=== PATIENT | male | born 1995 | race Two or more races ===

== ENCOUNTER 2021-06-06 13:34 | Inpatient (IN) | payer MEDICAID, OTHER ==
[~2021-06-06] VITALS: Ht 165.1 cm; Wt 75.7 kg
[2021-06-06 14:38] LABS: COVID AG,FIA SOURCE NASOPHARYNGEAL
[2021-06-06 15:00] LABS: BASOPHILS % (AUTO) 0.5 % (0.0-2.0); EOSINOPHILS % (AUTO) 1.6 % (1.0-6.0); HEMATOCRIT 42.9 % (41-53); HEMOGLOBIN 14.5 g/dL (13.5-17.5); LYMPHOCYTES # (AUTO) 1.7 K/uL (1.0-4.8); LYMPHOCYTES % (AUTO) 15.7 % (22.0-44.0); MEAN CORPUSCULAR HEMOGLOBIN 31.9 pg (26.0-34.0); MEAN CORPUSCULAR HGB CONC 33.8 G/dL (31.0-37.0); MEAN CORPUSCULAR VOLUME 94 fL (80-100); MONOCYTES # (AUTO) 0.6 K/uL (0.1-1.0); MONOCYTES % (AUTO) 5.4 % (2.0-9.0); NEUTROPHILS # (AUTO) 8.5 K/uL (1.8-7.7); NEUTROPHILS % (AUTO) 76.8 % (40.0-70.0); PLATELET COUNT (AUTO) 235 K/uL (150-450); RED BLOOD CELL COUNT(AUTO) 4.54 MIL/uL (4.50-5.90); RED CELL DISTRIBUTION WIDTH 13.6 % (11.5-14.5)
[2021-06-06 15:12] LABS: ANION GAP 10 mmol/L (8-16); CALCIUM, TOTAL 8.7 mg/dL (8.8-10.5); CARBON DIOXIDE 25 mmol/L (22-29); CHLORIDE 106 mmol/L (98-107); CREATININE 0.62 mg/dL (0.60-1.30); GLOMERULAR FILTR. RATE CALC > 60 mL/min (>60); GLUCOSE,RANDOM 95 mg/dL (70-110); POTASSIUM 3.9 mmol/L (3.5-5.1); SODIUM SERUM 141 mmol/L (136-145); UREA NITROGEN, BLOOD 7 mg/dL (7-18)
[2021-06-06 15:21] LABS: AMPHET/METH SCREEN,URINE NEGATIVE (NEGATIVE); BARBITURATE SCREEN, URINE NEGATIVE (NEGATIVE); BENZODIAZEPINES SCREEN,URINE NEGATIVE (NEGATIVE); CANNABINOID SCREEN,URINE POSITIVE (NEGATIVE); COCAINE SCREEN,URINE NEGATIVE (NEGATIVE); METHADONE SCREEN, URINE NEGATIVE (NEGATIVE); OPIATE SCREEN,URINE NEGATIVE (NEGATIVE)
[2021-06-06 15:22] LABS: PHENCYCLIDINE SCREEN,URINE NEGATIVE (NEGATIVE)
[2021-06-06 15:25] LABS: ALANINE AMINOTRANSFERASE 20 U/L (12-78); ALBUMIN 3.4 g/dL (3.4-5.0); ALKALINE PHOSPHATASE 62 U/L (46-116); ASPARTATE AMINOTRANSFERASE 15 U/L (15-37); BILIRUBIN,TOTAL 0.4 mg/dL (0.1-1.0); TOTAL PROTEIN, SERUM 6.4 g/dL (6.4-8.2)
[2021-06-06] MEDS ORDERED: BENZTROPINE MESYLATE 2 MG TABLET PO ONE (18:30)
[2021-06-06] MEDS ORDERED: HALOPERIDOL 5 MG TABLET PO ONE (18:30)
[2021-06-06] MEDS ORDERED: LORazepam 1 MG TABLET PO ONE (18:30)
[2021-06-06] MEDS ORDERED: ZOLPIDEM TARTRATE 10 MG TABLET PO PRN (18:45)
[2021-06-06 20:20] VITALS: BP 104/80
[2021-06-07 03:31] LABS: CHOLESTEROL 108 mg/dL (131-200); HDL CHOLESTEROL 36 mg/dL (40-60); LDL CHOL (CALC.) 60 mg/dL (0-130); TRIGLYCERIDES 58 mg/dL (15-150)
[2021-06-07] MEDS ORDERED: CloNIDine HCL 0.1 MG TABLET PO PRN (08:30)
[2021-06-07] MEDS ORDERED: IBUPROFEN 400 MG TABLET PO PRN (08:30)
[2021-06-07] MEDS ORDERED: GuaiFENesin/D-METHORPHAN [SUGAR-FREE] 200-20MG/10 ML SYRUP UDCUP PO PRN (08:30)
[2021-06-07] MEDS ORDERED: LOPERAMIDE HCL 2 MG CAPSULE PO PRN (08:30)
[2021-06-07] MEDS ORDERED: DOCUSATE SODIUM 100 MG CAPSULE PO PRN (08:30)
[2021-06-07] MEDS ORDERED: PETROLATUM,WHITE 28 GM JELLY TP PRN (08:30)
[2021-06-07] MEDS ORDERED: ONDANSETRON HCL 4 MG TABLET PO PRN (08:30)
[2021-06-07] MEDS ORDERED: NICOTINE 14 MG/24 HOUR PATCH TD PRN (08:30)
[2021-06-07] MEDS ORDERED: MAGNESIUM HYDROXIDE SUSPENSION 30 ML UDCUP PO PRN (08:30)
[2021-06-07] MEDS ORDERED: ACETAMINOPHEN 325 MG TABLET PO PRN (08:30)
[2021-06-07] MEDS ORDERED: ALBUTEROL SULFATE HFA 90 MCG/PUFF 8 GM INHALER IH PRN (08:30)
[2021-06-07] MEDS ORDERED: MAG HYDROX/AL HYDROX/SIMETH ES 30 ML SUSPENSION UDCUP PO PRN (08:30)
[2021-06-07 08:38] VITALS: BP 108/61
[2021-06-07] MEDS: RisperiDONE 2 MG TABLET PO SCH ×2 (10:51→20:20)
[2021-06-07 16:20] VITALS: BP 106/72
[2021-06-08 08:27] VITALS: BP 114/66
[2021-06-08] MEDS: RisperiDONE 2 MG TABLET PO SCH ×2 (08:31→08:32)
[2021-06-08] MEDS: LORazepam 2 MG TABLET PO PRN (09:04)
[2021-06-08] MEDS: HALOPERIDOL 5 MG TABLET PO PRN (09:04)
[2021-06-08] MEDS ORDERED: HALOPERIDOL LACTATE 5 MG/ML VIAL IM ONE (16:15)
[2021-06-08] MEDS ORDERED: DiphenhydrAMINE HCL 50 MG/ML VIAL IM ONE (16:15)
[2021-06-08] MEDS ORDERED: LORazepam 2 MG/ML VIAL IM ONE (16:15)
[2021-06-08 16:30] VITALS: BP 104/64
[2021-06-09] MEDS: RisperiDONE 2 MG TABLET PO SCH ×2 (07:43→20:17)
[2021-06-09] MEDS: LORazepam 2 MG TABLET PO PRN (07:43)
[2021-06-09] MEDS: HALOPERIDOL 5 MG TABLET PO PRN (07:43)
[2021-06-09 08:11] VITALS: BP 110/71
[2021-06-09] MEDS ORDERED: HALOPERIDOL LACTATE 5 MG/ML VIAL IM ONE (15:45)
[2021-06-09] MEDS ORDERED: DiphenhydrAMINE HCL 50 MG/ML VIAL IM ONE (15:45)
[2021-06-09] MEDS ORDERED: LORazepam 2 MG/ML VIAL IM ONE (15:45)
[2021-06-10 11:11] VITALS: BP 115/65
[2021-06-10] MEDS: DIVALPROEX SODIUM 500 MG DR TABLET PO SCH ×2 (12:03→16:01)
[2021-06-10] MEDS: RisperiDONE 2 MG TABLET PO SCH ×2 (12:03→20:02)
[2021-06-10] MEDS: LORazepam 2 MG TABLET PO PRN (16:00)
[2021-06-10] MEDS: HALOPERIDOL 5 MG TABLET PO PRN ×2 (16:00→20:02)
[2021-06-10 16:44] VITALS: BP 110/64
[2021-06-10] MEDS ORDERED: DIVALPROEX SODIUM 500 MG DR TABLET PO SCH (17:00)
[2021-06-11] MEDS: RisperiDONE 2 MG TABLET PO SCH (08:12)
[2021-06-11] MEDS: DIVALPROEX SODIUM 500 MG DR TABLET PO SCH (08:12)
[2021-06-11 08:33] VITALS: BP 117/70
[2021-06-11] MEDS ORDERED: RISP2TAB45 PO (12:33)
[2021-06-11] MEDS ORDERED: DIVA-112 PO (12:33)
== END 2021-06-11 14:10 | disposition left against medical advice (07) | DRG 750 ==
LOC: EMS 13:37 → 3EC 18:27
PROVIDERS: ADMIT Psychiatry & Neurology Child & Adolescent Psychiatry; ATTEND Psychiatry & Neurology Child & Adolescent Psychiatry
DX: F20.0 Paranoid schizophrenia (principal); Z59.0 Homelessness; D72.829 Elevated white blood cell count, unspecified; F17.200 Nicotine dependence, unspecified, uncomplicated; Z20.822 Contact with and (suspected) exposure to COVID-19; F19.10 Other psychoactive substance abuse, uncomplicated; F41.9 Anxiety disorder, unspecified; F10.10 Alcohol abuse, uncomplicated; Y90.9 Presence of alcohol in blood, level not specified; F15.90 Other stimulant use, unspecified, uncomplicated; F12.90 Cannabis use, unspecified, uncomplicated
CPT/HCPCS: 80053; 80061; 85025; 99285; G0480; J1200; J1630; J2060

== ENCOUNTER 2021-07-11 21:01 | Inpatient (IN) | payer MEDICAID, OTHER ==
[~2021-07-11] VITALS: Ht 167.6 cm; Wt 75.3 kg
[~2021-07-11 21:01] MED LIST: DIVA-112 PO; RISP2TAB45 PO
[2021-07-11 21:57] LABS: BASOPHILS % (AUTO) 1.2 % (0.0-2.0); HEMATOCRIT 46.1 % (41-53); HEMOGLOBIN 15.5 g/dL (13.5-17.5); LYMPHOCYTES # (AUTO) 1.8 K/uL (1.0-4.8); LYMPHOCYTES % (AUTO) 17.2 % (22.0-44.0); MEAN CORPUSCULAR HEMOGLOBIN 32.4 pg (26.0-34.0); MEAN CORPUSCULAR HGB CONC 33.6 G/dL (31.0-37.0); MEAN CORPUSCULAR VOLUME 96 fL (80-100); MONOCYTES # (AUTO) 0.8 K/uL (0.1-1.0); MONOCYTES % (AUTO) 7.8 % (2.0-9.0); NEUTROPHILS # (AUTO) 7.3 K/uL (1.8-7.7); NEUTROPHILS % (AUTO) 70.8 % (40.0-70.0); PLATELET COUNT (AUTO) 238 K/uL (150-450); RED BLOOD CELL COUNT(AUTO) 4.78 MIL/uL (4.50-5.90); RED CELL DISTRIBUTION WIDTH 14.2 % (11.5-14.5)
[2021-07-11 21:58] LABS: COVID AG,FIA SOURCE NASOPHARYNGEAL
[2021-07-11 22:04] LABS: ANION GAP 10 mmol/L (8-16); CALCIUM, TOTAL 8.7 mg/dL (8.8-10.5); CARBON DIOXIDE 25 mmol/L (22-29); CHLORIDE 105 mmol/L (98-107); CREATININE 0.84 mg/dL (0.60-1.30); GLOMERULAR FILTR. RATE CALC > 60 mL/min (>60); GLUCOSE,RANDOM 127 mg/dL (70-110); POTASSIUM 3.2 mmol/L (3.5-5.1); SODIUM SERUM 140 mmol/L (136-145); UREA NITROGEN, BLOOD 6 mg/dL (7-18)
[2021-07-11 22:07] LABS: AMPHET/METH SCREEN,URINE NEGATIVE (NEGATIVE); BARBITURATE SCREEN, URINE NEGATIVE (NEGATIVE); BENZODIAZEPINES SCREEN,URINE NEGATIVE (NEGATIVE); CANNABINOID SCREEN,URINE POSITIVE (NEGATIVE); COCAINE SCREEN,URINE NEGATIVE (NEGATIVE); METHADONE SCREEN, URINE NEGATIVE (NEGATIVE); OPIATE SCREEN,URINE NEGATIVE (NEGATIVE)
[2021-07-11 22:10] LABS: PHENCYCLIDINE SCREEN,URINE NEGATIVE (NEGATIVE)
[2021-07-11 22:10] LABS: ALANINE AMINOTRANSFERASE 20 U/L (12-78); ALKALINE PHOSPHATASE 73 U/L (46-116); ASPARTATE AMINOTRANSFERASE 14 U/L (15-37); BILIRUBIN,TOTAL 0.6 mg/dL (0.1-1.0); TOTAL PROTEIN, SERUM 7.3 g/dL (6.4-8.2)
[2021-07-11] MEDS ORDERED: POTASSIUM CHLORIDE 20 MEQ ER TABLET PO ONE (22:30)
[2021-07-11 22:42] LABS: VALPROIC ACID < 3 mcg/mL (50-100)
[2021-07-12] MEDS ORDERED: ZOLPIDEM TARTRATE 10 MG TABLET PO PRN (00:15)
[2021-07-12 02:45] LABS: APPEARANCE,URINE CLEAR (CLEAR); BILIRUBIN,URINE NEGATIVE (NEGATIVE); GLUCOSE, URINE (UA) NEGATIVE (NEGATIVE); KETONES,URINE NEGATIVE (NEGATIVE); LEUKOCYTE ESTERASE ,URINE NEGATIVE (NEGATIVE); NITRATE,URINE NEGATIVE (NEGATIVE); OCCULT BLOOD,URINE NEGATIVE (NEGATIVE); PROTEIN,URINE NEGATIVE (NEGATIVE); UROBILINOGEN,URINE 0.2 mg/dL (<=1.0)
[2021-07-12 18:34] VITALS: BP 117/86
[2021-07-12] MEDS: RisperiDONE 2 MG TABLET PO SCH (20:36)
[2021-07-12] MEDS: LORazepam 2 MG TABLET PO PRN (20:36)
[2021-07-13] MEDS ORDERED: LOPERAMIDE HCL 2 MG CAPSULE PO PRN (06:45)
[2021-07-13] MEDS ORDERED: ALBUTEROL SULFATE HFA 90 MCG/PUFF 8 GM INHALER IH PRN (06:45)
[2021-07-13] MEDS ORDERED: PETROLATUM,WHITE 28 GM JELLY TP PRN (06:45)
[2021-07-13] MEDS ORDERED: MAG HYDROX/AL HYDROX/SIMETH ES 30 ML SUSPENSION UDCUP PO PRN (06:45)
[2021-07-13] MEDS ORDERED: POTASSIUM CHLORIDE 20 MEQ ER TABLET PO ONE (06:45)
[2021-07-13] MEDS ORDERED: BENZOCAINE/MENTHOL LOZENGE PO PRN (06:45)
[2021-07-13] MEDS ORDERED: ONDANSETRON HCL 4 MG TABLET PO PRN (06:45)
[2021-07-13] MEDS ORDERED: CloNIDine HCL 0.1 MG TABLET PO PRN (06:45)
[2021-07-13] MEDS ORDERED: MAGNESIUM HYDROXIDE SUSPENSION 30 ML UDCUP PO PRN (06:45)
[2021-07-13] MEDS ORDERED: DOCUSATE SODIUM 100 MG CAPSULE PO PRN (06:45)
[2021-07-13] MEDS ORDERED: BACITRACIN 28 GM OINTMENT TP PRN (06:45)
[2021-07-13] MEDS ORDERED: OMEPRAZOLE 20 MG CAPSULE PO PRN (06:45)
[2021-07-13] MEDS ORDERED: ACETAMINOPHEN 325 MG TABLET PO PRN (06:45)
[2021-07-13] MEDS ORDERED: IBUPROFEN 600 MG TABLET PO PRN (06:45)
[2021-07-13 08:18] VITALS: BP 113/70
[2021-07-13] MEDS: DIVALPROEX SODIUM 500 MG ER TABLET PO SCH ×2 (08:22→16:53)
[2021-07-13] MEDS: RisperiDONE 2 MG TABLET PO SCH ×2 (08:22→20:56)
[2021-07-13 12:59] LABS: CHOL/HDL RATIO 3.8 (4.2-7.3)
[2021-07-13 16:18] VITALS: BP 112/62
[2021-07-13] MEDS: HALOPERIDOL 5 MG TABLET PO PRN (16:53)
[2021-07-14 08:48] VITALS: BP 117/60
[2021-07-14] MEDS: RisperiDONE 2 MG TABLET PO SCH ×2 (10:02→21:07)
[2021-07-14] MEDS: DIVALPROEX SODIUM 500 MG ER TABLET PO SCH ×2 (10:02→16:16)
[2021-07-14 16:05] VITALS: BP 124/69
[2021-07-14] MEDS: HALOPERIDOL 5 MG TABLET PO PRN (16:48)
[2021-07-14] MEDS: LORazepam 2 MG TABLET PO PRN (19:56)
[2021-07-15 08:06] VITALS: BP 123/69
[2021-07-15] MEDS: RisperiDONE 2 MG TABLET PO SCH (09:45)
[2021-07-15] MEDS: DIVALPROEX SODIUM 500 MG ER TABLET PO SCH (09:45)
== END 2021-07-15 15:45 | disposition home or self-care (01) | DRG 750 ==
LOC: EMS 21:10 → 3EC 07-12 17:28
PROVIDERS: ADMIT Psychiatry & Neurology Psychiatry; ATTEND Psychiatry & Neurology Psychiatry
DX: F20.9 Schizophrenia, unspecified (principal); F22 Delusional disorders; E87.6 Hypokalemia; F12.10 Cannabis abuse, uncomplicated; F17.210 Nicotine dependence, cigarettes, uncomplicated; F32.9 Major depressive disorder, single episode, unspecified; F15.10 Other stimulant abuse, uncomplicated; F41.9 Anxiety disorder, unspecified; G47.00 Insomnia, unspecified; K59.00 Constipation, unspecified; R73.9 Hyperglycemia, unspecified; Z20.822 Contact with and (suspected) exposure to COVID-19; Z71.6 Tobacco abuse counseling; Z71.51 Drug abuse counseling and surveillance of drug abuser
CPT/HCPCS: 80053; 80061; 80164; 81003; 84132; 85025; 99285; G0480

== ENCOUNTER 2022-06-29 08:28 | Inpatient (IN) | payer MEDICAID, OTHER ==
[~2022-06-29] VITALS: Ht 172.7 cm; Wt 76.7 kg
[2022-06-29 09:37] LABS: BASOPHILS % (AUTO) 0.4 % (0.0-2.0); EOSINOPHILS % (AUTO) 1.1 % (1.0-6.0); HEMATOCRIT 43.7 % (41-53); HEMOGLOBIN 15.1 g/dL (13.5-17.5); LYMPHOCYTES # (AUTO) 1.2 K/uL (1.0-4.8); LYMPHOCYTES % (AUTO) 13.9 % (22.0-44.0); MEAN CORPUSCULAR HEMOGLOBIN 32.4 pg (26.0-34.0); MEAN CORPUSCULAR HGB CONC 34.5 G/dL (31.0-37.0); MEAN CORPUSCULAR VOLUME 94 fL (80-100); MONOCYTES # (AUTO) 0.5 K/uL (0.1-1.0); MONOCYTES % (AUTO) 6.5 % (2.0-9.0); NEUTROPHILS # (AUTO) 6.5 K/uL (1.8-7.7); NEUTROPHILS % (AUTO) 78.1 % (40.0-70.0); PLATELET COUNT (AUTO) 200 K/uL (150-450); RED BLOOD CELL COUNT(AUTO) 4.65 MIL/uL (4.50-5.90); RED CELL DISTRIBUTION WIDTH 13.2 % (11.5-14.5)
[2022-06-29 09:45] LABS: AMPHET/METH SCREEN,URINE NEGATIVE (NEGATIVE); BARBITURATE SCREEN, URINE NEGATIVE (NEGATIVE); BENZODIAZEPINES SCREEN,URINE NEGATIVE (NEGATIVE); CANNABINOID SCREEN,URINE POSITIVE (NEGATIVE); COCAINE SCREEN,URINE NEGATIVE (NEGATIVE); METHADONE SCREEN, URINE NEGATIVE (NEGATIVE); OPIATE SCREEN,URINE NEGATIVE (NEGATIVE)
[2022-06-29 09:46] LABS: ANION GAP 9 mmol/L (8-16); CALCIUM, TOTAL 8.7 mg/dL (8.8-10.5); CARBON DIOXIDE 26 mmol/L (22-29); CHLORIDE 104 mmol/L (98-107); CREATININE 0.82 mg/dL (0.60-1.30); GLUCOSE,RANDOM 99 mg/dL (70-110); POTASSIUM 3.6 mmol/L (3.5-5.1); SODIUM SERUM 139 mmol/L (136-145); UREA NITROGEN, BLOOD 7 mg/dL (7-18)
[2022-06-29 09:48] LABS: GLOMERULAR FILTR. RATE CALC > 60 mL/min (>60)
[2022-06-29 09:48] LABS: PHENCYCLIDINE SCREEN,URINE NEGATIVE (NEGATIVE)
[2022-06-29 09:52] LABS: ALANINE AMINOTRANSFERASE 17 U/L (12-78); ALBUMIN 4.1 g/dL (3.4-5.0); ALKALINE PHOSPHATASE 51 U/L (46-116); ASPARTATE AMINOTRANSFERASE 20 U/L (15-37); BILIRUBIN,TOTAL 1.2 mg/dL (0.1-1.0); TOTAL PROTEIN, SERUM 6.9 g/dL (6.4-8.2)
[2022-06-29 09:54] LABS: VALPROIC ACID < 3 mcg/mL (50-100)
[2022-06-29] MEDS ORDERED: HALOPERIDOL 5 MG TABLET PO ONE (10:15)
[2022-06-29] MEDS ORDERED: LORazepam 2 MG TABLET PO ONE (10:15)
[2022-06-29 10:32] LABS: COVID AG,FIA SOURCE NASOPHARYNGEAL
[2022-06-29 14:52] VITALS: BP 112/76
[2022-06-30] MEDS ORDERED: ONDANSETRON HCL 4 MG TABLET PO PRN (06:30)
[2022-06-30] MEDS ORDERED: MAGNESIUM HYDROXIDE SUSPENSION 30 ML UDCUP PO PRN (06:30)
[2022-06-30] MEDS ORDERED: ALBUTEROL SULFATE HFA 90 MCG/PUFF 8 GM INHALER IH PRN (06:30)
[2022-06-30] MEDS ORDERED: ACETAMINOPHEN 325 MG TABLET PO PRN (06:30)
[2022-06-30] MEDS ORDERED: PETROLATUM,WHITE 28 GM JELLY TP PRN (06:30)
[2022-06-30] MEDS ORDERED: CloNIDine HCL 0.1 MG TABLET PO PRN (06:30)
[2022-06-30] MEDS ORDERED: NICOTINE 14 MG/24 HOUR PATCH TD PRN (06:30)
[2022-06-30] MEDS ORDERED: IBUPROFEN 400 MG TABLET PO PRN (06:30)
[2022-06-30] MEDS ORDERED: MAG HYDROX/AL HYDROX/SIMETH ES 30 ML SUSPENSION UDCUP PO PRN (06:30)
[2022-06-30] MEDS ORDERED: GuaiFENesin/D-METHORPHAN [SUGAR-FREE] 200-20MG/10 ML SYRUP UDCUP PO PRN (06:30)
[2022-06-30] MEDS ORDERED: DOCUSATE SODIUM 100 MG CAPSULE PO PRN (06:30)
[2022-06-30] MEDS ORDERED: LOPERAMIDE HCL 2 MG CAPSULE PO PRN (06:30)
[2022-06-30 10:06] VITALS: BP 114/56
[2022-06-30] MEDS: RisperiDONE 2 MG TABLET PO SCH ×2 (13:51→20:23)
[2022-06-30] MEDS: DIVALPROEX SODIUM 500 MG DR TABLET PO SCH ×2 (13:51→17:52)
[2022-06-30 16:00] VITALS: BP 108/71
[2022-06-30] MEDS: LORazepam 2 MG TABLET PO PRN (17:52)
[2022-06-30] MEDS: HALOPERIDOL 5 MG TABLET PO PRN (17:52)
[2022-06-30] MEDS: ZOLPIDEM TARTRATE 10 MG TABLET PO PRN (21:03)
[2022-07-01] MEDS: DIVALPROEX SODIUM 500 MG DR TABLET PO SCH ×2 (08:14→16:06)
[2022-07-01] MEDS: RisperiDONE 2 MG TABLET PO SCH ×2 (08:14→20:22)
[2022-07-01 09:13] VITALS: BP 114/76
[2022-07-01] MEDS: LORazepam 2 MG TABLET PO PRN (17:20)
[2022-07-01 18:00] VITALS: BP 107/68
[2022-07-01] MEDS: ZOLPIDEM TARTRATE 10 MG TABLET PO PRN (20:54)
[2022-07-02] MEDS: DIVALPROEX SODIUM 500 MG DR TABLET PO SCH ×2 (08:13→16:21)
[2022-07-02] MEDS: RisperiDONE 2 MG TABLET PO SCH ×2 (08:13→20:26)
[2022-07-02 08:30] VITALS: BP 125/78
[2022-07-02] MEDS: HALOPERIDOL 5 MG TABLET PO PRN (14:22)
[2022-07-02] MEDS: LORazepam 2 MG TABLET PO PRN (14:22)
[2022-07-02 16:27] VITALS: BP 106/63
[2022-07-03 08:00] VITALS: BP 118/72
[2022-07-03] MEDS: RisperiDONE 2 MG TABLET PO SCH ×2 (09:04→20:36)
[2022-07-03] MEDS: DIVALPROEX SODIUM 500 MG DR TABLET PO SCH ×2 (09:04→17:07)
[2022-07-03] MEDS: HALOPERIDOL 5 MG TABLET PO PRN (12:06)
[2022-07-03] MEDS: LORazepam 2 MG TABLET PO PRN (12:06)
[2022-07-03 16:05] VITALS: BP 123/74
[2022-07-04 08:30] VITALS: BP 130/80
[2022-07-04] MEDS: DIVALPROEX SODIUM 500 MG DR TABLET PO SCH ×2 (11:16→17:45)
[2022-07-04] MEDS: RisperiDONE 2 MG TABLET PO SCH ×2 (11:16→21:14)
[2022-07-04 16:10] VITALS: BP 112/59
[2022-07-05 06:49] LABS: COVID AG,FIA SOURCE NASAL SWAB
[2022-07-05 08:14] VITALS: BP 110/64
[2022-07-05] MEDS: DIVALPROEX SODIUM 500 MG DR TABLET PO SCH ×2 (08:38→17:01)
[2022-07-05] MEDS: RisperiDONE 2 MG TABLET PO SCH ×2 (08:38→20:43)
[2022-07-05] MEDS: LORazepam 2 MG TABLET PO PRN (15:07)
[2022-07-05] MEDS: HALOPERIDOL 5 MG TABLET PO PRN (15:07)
[2022-07-05 16:22] VITALS: BP 116/82
[2022-07-05] MEDS: ZOLPIDEM TARTRATE 10 MG TABLET PO PRN (20:44)
[2022-07-06 08:20] VITALS: BP 138/86
[2022-07-06] MEDS: RisperiDONE 2 MG TABLET PO SCH ×2 (08:52→21:03)
[2022-07-06] MEDS: LORazepam 2 MG TABLET PO PRN (08:52)
[2022-07-06] MEDS: DIVALPROEX SODIUM 500 MG DR TABLET PO SCH ×2 (08:52→17:25)
[2022-07-06] MEDS: HALOPERIDOL 5 MG TABLET PO PRN (08:52)
[2022-07-06 16:34] VITALS: BP 134/83
[2022-07-07] MEDS: DIVALPROEX SODIUM 500 MG DR TABLET PO SCH ×2 (08:21→17:51)
[2022-07-07] MEDS: LORazepam 2 MG TABLET PO PRN ×2 (08:21→14:37)
[2022-07-07] MEDS: RisperiDONE 2 MG TABLET PO SCH ×2 (08:21→20:34)
[2022-07-07 09:26] VITALS: BP 131/85
[2022-07-07] MEDS: HALOPERIDOL 5 MG TABLET PO PRN (14:37)
[2022-07-07 16:14] VITALS: BP 102/70
[2022-07-08] MEDS: LORazepam 2 MG TABLET PO PRN ×2 (07:49→15:37)
[2022-07-08] MEDS: DIVALPROEX SODIUM 500 MG DR TABLET PO SCH ×2 (09:02→17:08)
[2022-07-08] MEDS: RisperiDONE 2 MG TABLET PO SCH ×2 (09:02→20:11)
[2022-07-08 09:49] VITALS: BP 109/72
[2022-07-08] MEDS: HALOPERIDOL 5 MG TABLET PO PRN (11:59)
[2022-07-08 16:46] VITALS: BP 129/86
[2022-07-09] MEDS: LORazepam 2 MG TABLET PO PRN ×2 (07:55→17:04)
[2022-07-09] MEDS: DIVALPROEX SODIUM 500 MG DR TABLET PO SCH ×2 (07:55→17:04)
[2022-07-09] MEDS: RisperiDONE 2 MG TABLET PO SCH ×2 (07:55→20:23)
[2022-07-09 08:47] VITALS: BP 107/67
[2022-07-09 16:17] VITALS: BP 105/67
[2022-07-10] MEDS: RisperiDONE 2 MG TABLET PO SCH ×2 (08:33→20:40)
[2022-07-10] MEDS: DIVALPROEX SODIUM 500 MG DR TABLET PO SCH ×2 (08:34→16:01)
[2022-07-10] MEDS: LORazepam 2 MG TABLET PO PRN ×2 (08:34→16:01)
[2022-07-10 08:53] VITALS: BP 108/76
[2022-07-10 16:37] VITALS: BP 119/74
[2022-07-11] MEDS: LORazepam 2 MG TABLET PO PRN ×3 (04:11→17:15)
[2022-07-11 08:00] VITALS: BP 128/86
[2022-07-11] MEDS: RisperiDONE 2 MG TABLET PO SCH ×2 (08:17→20:21)
[2022-07-11] MEDS: DIVALPROEX SODIUM 500 MG DR TABLET PO SCH ×2 (08:17→17:15)
[2022-07-11 16:00] VITALS: BP 100/67
[2022-07-12 04:35] LABS: COVID AG,FIA SOURCE NASAL SWAB
[2022-07-12 08:26] VITALS: BP 116/75
[2022-07-12] MEDS: DIVALPROEX SODIUM 500 MG DR TABLET PO SCH ×2 (08:36→15:54)
[2022-07-12] MEDS: RisperiDONE 2 MG TABLET PO SCH ×2 (08:36→20:16)
[2022-07-12] MEDS: LORazepam 2 MG TABLET PO PRN ×2 (08:36→17:43)
[2022-07-12 16:14] VITALS: BP 101/71
[2022-07-12] MEDS: ZOLPIDEM TARTRATE 10 MG TABLET PO PRN (20:50)
[2022-07-13 08:43] VITALS: BP 120/66
[2022-07-13] MEDS: RisperiDONE 2 MG TABLET PO SCH ×2 (10:47→20:46)
[2022-07-13] MEDS: LORazepam 2 MG TABLET PO PRN ×2 (10:47→21:35)
[2022-07-13] MEDS: DIVALPROEX SODIUM 500 MG DR TABLET PO SCH ×2 (10:47→17:47)
[2022-07-13 16:29] VITALS: BP 121/82
[2022-07-13] MEDS: ZOLPIDEM TARTRATE 10 MG TABLET PO PRN (21:35)
[2022-07-14 08:09] VITALS: BP 119/74
[2022-07-14] MEDS: RisperiDONE 2 MG TABLET PO SCH ×2 (09:50→20:29)
[2022-07-14] MEDS: DIVALPROEX SODIUM 500 MG DR TABLET PO SCH ×2 (09:50→16:10)
[2022-07-14] MEDS: LORazepam 2 MG TABLET PO PRN ×2 (09:50→16:10)
[2022-07-14 16:11] VITALS: BP 131/79
[2022-07-14] MEDS: ZOLPIDEM TARTRATE 10 MG TABLET PO PRN (20:14)
[2022-07-15] MEDS: LORazepam 2 MG TABLET PO PRN ×2 (07:52→16:07)
[2022-07-15] MEDS: RisperiDONE 2 MG TABLET PO SCH ×2 (09:35→20:39)
[2022-07-15] MEDS: DIVALPROEX SODIUM 500 MG DR TABLET PO SCH ×2 (09:35→16:07)
[2022-07-15 09:40] VITALS: BP 124/71
[2022-07-15 16:59] VITALS: BP 109/64
[2022-07-15] MEDS: ZOLPIDEM TARTRATE 10 MG TABLET PO PRN (20:39)
[2022-07-16] MEDS: LORazepam 2 MG TABLET PO PRN ×2 (07:45→17:26)
[2022-07-16] MEDS: DIVALPROEX SODIUM 500 MG DR TABLET PO SCH ×2 (08:29→16:10)
[2022-07-16] MEDS: RisperiDONE 2 MG TABLET PO SCH ×2 (08:29→20:47)
[2022-07-16 16:09] VITALS: BP 111/74
[2022-07-16] MEDS: HALOPERIDOL 5 MG TABLET PO PRN (16:10)
[2022-07-17] MEDS: DIVALPROEX SODIUM 500 MG DR TABLET PO SCH ×2 (08:49→16:25)
[2022-07-17] MEDS: RisperiDONE 2 MG TABLET PO SCH ×2 (08:49→21:30)
[2022-07-17 09:50] VITALS: BP 110/68
[2022-07-17 16:20] VITALS: BP 104/61
[2022-07-17] MEDS: ZOLPIDEM TARTRATE 10 MG TABLET PO PRN (23:06)
[2022-07-18 08:24] VITALS: BP 127/85
[2022-07-18] MEDS: DIVALPROEX SODIUM 500 MG DR TABLET PO SCH ×2 (08:30→16:35)
[2022-07-18] MEDS: RisperiDONE 2 MG TABLET PO SCH ×2 (08:31→20:17)
[2022-07-18 16:05] VITALS: BP 130/76
[2022-07-18] MEDS: ZOLPIDEM TARTRATE 10 MG TABLET PO PRN (21:27)
[2022-07-19 03:07] LABS: COVID AG,FIA SOURCE NASAL SWAB
[2022-07-19] MEDS: DIVALPROEX SODIUM 500 MG DR TABLET PO SCH ×2 (08:19→16:21)
[2022-07-19] MEDS: RisperiDONE 2 MG TABLET PO SCH ×2 (08:19→20:23)
[2022-07-19 08:36] VITALS: BP 115/70
[2022-07-19 17:07] VITALS: BP 125/76
[2022-07-19] MEDS: ZOLPIDEM TARTRATE 10 MG TABLET PO PRN (23:55)
[2022-07-20 08:27] VITALS: BP 111/67
[2022-07-20] MEDS: RisperiDONE 2 MG TABLET PO SCH (09:04)
[2022-07-20] MEDS: DIVALPROEX SODIUM 500 MG DR TABLET PO SCH (09:04)
[2022-07-20] MEDS: LORazepam 2 MG TABLET PO PRN (09:05)
[2022-07-20] MEDS ORDERED: RISP2TAB86 PO (11:12)
[2022-07-20] MEDS ORDERED: DIVA-112 PO (11:12)
== END 2022-07-20 15:30 | disposition home or self-care (01) | DRG 750 ==
LOC: EMS 08:30 → 3EC 13:59
PROVIDERS: ADMIT Psychiatry & Neurology Child & Adolescent Psychiatry; ATTEND Psychiatry & Neurology Child & Adolescent Psychiatry
DX: F25.1 Schizoaffective disorder, depressive type (principal); Z91.19 Patient's noncompliance with other medical treatment and regimen; F10.10 Alcohol abuse, uncomplicated; F17.200 Nicotine dependence, unspecified, uncomplicated; Z20.822 Contact with and (suspected) exposure to COVID-19; F41.9 Anxiety disorder, unspecified; Z79.899 Other long term (current) drug therapy; Z59.00 Homelessness unspecified
CPT/HCPCS: 80053; 80164; 85025; 99285; G0480

== ENCOUNTER 2022-08-19 02:10 | Inpatient (IN) | payer MEDICAID, OTHER ==
[~2022-08-19] VITALS: Ht 170.2 cm; Wt 75.4 kg
[~2022-08-19 02:10] MED LIST changes: -RISP2TAB45 PO; +RISP2TAB86 PO
[2022-08-19 03:00] LABS: EOSINOPHILS % (AUTO) 1.4 % (1.0-6.0); HEMATOCRIT 45.3 % (41-53); HEMOGLOBIN 15.2 g/dL (13.5-17.5); LYMPHOCYTES % (AUTO) 21.5 % (22.0-44.0); MEAN CORPUSCULAR HEMOGLOBIN 32.6 pg (26.0-34.0); MEAN CORPUSCULAR HGB CONC 33.7 G/dL (31.0-37.0); MEAN CORPUSCULAR VOLUME 97 fL (80-100); MONOCYTES # (AUTO) 0.9 K/uL (0.1-1.0); MONOCYTES % (AUTO) 9.3 % (2.0-9.0); NEUTROPHILS # (AUTO) 6.3 K/uL (1.8-7.7); NEUTROPHILS % (AUTO) 66.8 % (40.0-70.0); PLATELET COUNT (AUTO) 210 K/uL (150-450); RED BLOOD CELL COUNT(AUTO) 4.67 MIL/uL (4.50-5.90); RED CELL DISTRIBUTION WIDTH 14.2 % (11.5-14.5)
[2022-08-19 03:10] LABS: ANION GAP 10 mmol/L (8-16); CARBON DIOXIDE 28 mmol/L (22-29); CHLORIDE 106 mmol/L (98-107); CREATININE 1.08 mg/dL (0.60-1.30); GLUCOSE,RANDOM 80 mg/dL (70-110); POTASSIUM 3.7 mmol/L (3.5-5.1); SODIUM SERUM 144 mmol/L (136-145); UREA NITROGEN, BLOOD 17 mg/dL (7-18)
[2022-08-19 03:14] LABS: GLOMERULAR FILTR. RATE CALC > 60 mL/min (>60)
[2022-08-19 03:17] LABS: ALANINE AMINOTRANSFERASE 16 U/L (12-78); ALBUMIN 3.7 g/dL (3.4-5.0); ALKALINE PHOSPHATASE 66 U/L (46-116); ASPARTATE AMINOTRANSFERASE 13 U/L (15-37); BILIRUBIN,TOTAL 0.5 mg/dL (0.1-1.0); TOTAL PROTEIN, SERUM 6.4 g/dL (6.4-8.2)
[2022-08-19 03:30] LABS: AMPHET/METH SCREEN,URINE NEGATIVE (NEGATIVE); BARBITURATE SCREEN, URINE NEGATIVE (NEGATIVE); BENZODIAZEPINES SCREEN,URINE NEGATIVE (NEGATIVE); CANNABINOID SCREEN,URINE POSITIVE (NEGATIVE); COCAINE SCREEN,URINE NEGATIVE (NEGATIVE); METHADONE SCREEN, URINE NEGATIVE (NEGATIVE); OPIATE SCREEN,URINE NEGATIVE (NEGATIVE)
[2022-08-19 03:32] LABS: PHENCYCLIDINE SCREEN,URINE NEGATIVE (NEGATIVE)
[2022-08-19 04:13] LABS: APPEARANCE,URINE CLEAR (CLEAR); BILIRUBIN,URINE NEGATIVE (NEGATIVE); GLUCOSE, URINE (UA) NEGATIVE (NEGATIVE); KETONES,URINE NEGATIVE (NEGATIVE); LEUKOCYTE ESTERASE ,URINE NEGATIVE (NEGATIVE); NITRATE,URINE NEGATIVE (NEGATIVE); OCCULT BLOOD,URINE NEGATIVE (NEGATIVE); PROTEIN,URINE NEGATIVE (NEGATIVE); SPECIFIC GRAVITIY, URINE 1.009 (1.003-1.030); UROBILINOGEN,URINE <=1.0 mg/dL (<=1.0)
[2022-08-19] MEDS: ZOLPIDEM TARTRATE 10 MG TABLET PO PRN ×2 (07:09→23:07)
[2022-08-19] MEDS ORDERED: GuaiFENesin/D-METHORPHAN [SUGAR-FREE] 200-20MG/10 ML SYRUP UDCUP PO PRN (09:00)
[2022-08-19] MEDS ORDERED: MAG HYDROX/AL HYDROX/SIMETH ES 30 ML SUSPENSION UDCUP PO PRN (09:00)
[2022-08-19] MEDS ORDERED: LOPERAMIDE HCL 2 MG CAPSULE PO PRN (09:00)
[2022-08-19] MEDS ORDERED: MAGNESIUM HYDROXIDE SUSPENSION 30 ML UDCUP PO PRN (09:00)
[2022-08-19] MEDS ORDERED: ONDANSETRON HCL 4 MG TABLET PO PRN (09:00)
[2022-08-19] MEDS ORDERED: ACETAMINOPHEN 325 MG TABLET PO PRN (09:00)
[2022-08-19] MEDS ORDERED: DOCUSATE SODIUM 100 MG CAPSULE PO PRN (09:00)
[2022-08-19] MEDS ORDERED: ALBUTEROL SULFATE HFA 90 MCG/PUFF 8 GM INHALER IH PRN (09:00)
[2022-08-19] MEDS ORDERED: NICOTINE 14 MG/24 HOUR PATCH TD PRN (09:00)
[2022-08-19] MEDS ORDERED: IBUPROFEN 400 MG TABLET PO PRN (09:00)
[2022-08-19] MEDS ORDERED: CloNIDine HCL 0.1 MG TABLET PO PRN (09:00)
[2022-08-19] MEDS ORDERED: PETROLATUM,WHITE 28 GM JELLY TP PRN (09:00)
[2022-08-19 09:21] LABS: COVID AG,FIA SOURCE NASAL SWAB
[2022-08-19 11:09] VITALS: BP 111/72
[2022-08-19] MEDS ORDERED: PNEUMOCOCCAL VACCINE POLYVALENT 0.5 ML VIAL [PPSV23] IM. ONE (11:45)
[2022-08-19 16:00] VITALS: BP 90/62
[2022-08-20 08:00] VITALS: BP 122/72
[2022-08-20] MEDS ORDERED: MAGNESIUM HYDROXIDE SUSPENSION 30 ML UDCUP PO PRN (09:15)
[2022-08-20] MEDS ORDERED: IBUPROFEN 400 MG TABLET PO PRN (09:15)
[2022-08-20] MEDS ORDERED: ACETAMINOPHEN 325 MG TABLET PO PRN (09:15)
[2022-08-20] MEDS ORDERED: NICOTINE 14 MG/24 HOUR PATCH TD PRN (09:15)
[2022-08-20] MEDS ORDERED: LOPERAMIDE HCL 2 MG CAPSULE PO PRN (09:15)
[2022-08-20] MEDS ORDERED: CloNIDine HCL 0.1 MG TABLET PO PRN (09:15)
[2022-08-20] MEDS ORDERED: MAG HYDROX/AL HYDROX/SIMETH ES 30 ML SUSPENSION UDCUP PO PRN (09:15)
[2022-08-20] MEDS ORDERED: PETROLATUM,WHITE 28 GM JELLY TP PRN (09:15)
[2022-08-20] MEDS ORDERED: ALBUTEROL SULFATE HFA 90 MCG/PUFF 8 GM INHALER IH PRN (09:15)
[2022-08-20] MEDS ORDERED: GuaiFENesin/D-METHORPHAN [SUGAR-FREE] 200-20MG/10 ML SYRUP UDCUP PO PRN (09:15)
[2022-08-20] MEDS ORDERED: DOCUSATE SODIUM 100 MG CAPSULE PO PRN (09:15)
[2022-08-20] MEDS ORDERED: ONDANSETRON HCL 4 MG TABLET PO PRN (09:15)
[2022-08-20] MEDS: LORazepam 2 MG TABLET PO PRN (12:06)
[2022-08-20] MEDS: HALOPERIDOL 5 MG TABLET PO PRN (12:06)
[2022-08-20 16:07] VITALS: BP 103/67
[2022-08-20] MEDS: RisperiDONE 2 MG TABLET PO SCH (20:55)
[2022-08-20] MEDS: DIVALPROEX SODIUM 500 MG DR TABLET PO SCH (20:55)
[2022-08-21] MEDS: HALOPERIDOL 5 MG TABLET PO PRN (07:48)
[2022-08-21] MEDS: RisperiDONE 2 MG TABLET PO SCH ×2 (07:48→20:27)
[2022-08-21] MEDS: DIVALPROEX SODIUM 500 MG DR TABLET PO SCH ×2 (07:48→20:27)
[2022-08-21 08:28] VITALS: BP 105/61
[2022-08-21] MEDS: LORazepam 2 MG TABLET PO PRN (10:01)
[2022-08-21 16:36] VITALS: BP 100/62
[2022-08-22 08:00] VITALS: BP 106/65
[2022-08-22] MEDS: LORazepam 2 MG TABLET PO PRN ×2 (08:36→16:39)
[2022-08-22] MEDS: RisperiDONE 2 MG TABLET PO SCH ×2 (08:36→20:02)
[2022-08-22] MEDS: DIVALPROEX SODIUM 500 MG DR TABLET PO SCH ×2 (08:36→20:06)
[2022-08-22] MEDS: HALOPERIDOL 5 MG TABLET PO PRN ×2 (08:36→16:39)
[2022-08-22 16:00] VITALS: BP 99/64
[2022-08-23] MEDS: RisperiDONE 2 MG TABLET PO SCH ×2 (08:16→20:24)
[2022-08-23] MEDS: HALOPERIDOL 5 MG TABLET PO PRN (08:16)
[2022-08-23] MEDS: LORazepam 2 MG TABLET PO PRN ×2 (08:16→16:05)
[2022-08-23] MEDS: DIVALPROEX SODIUM 500 MG DR TABLET PO SCH ×2 (08:16→20:24)
[2022-08-23 08:19] VITALS: BP 106/60
[2022-08-23] MEDS: HALOPERIDOL 5 MG TABLET PO SCH ×2 (09:00→16:05)
[2022-08-23 16:13] VITALS: BP 123/71
[2022-08-24 08:03] VITALS: BP 117/80
[2022-08-24] MEDS: RisperiDONE 2 MG TABLET PO SCH ×2 (08:20→20:52)
[2022-08-24] MEDS: DIVALPROEX SODIUM 500 MG DR TABLET PO SCH ×2 (08:21→20:52)
[2022-08-24] MEDS: HALOPERIDOL 5 MG TABLET PO SCH ×2 (08:21→16:31)
[2022-08-24] MEDS: LORazepam 2 MG TABLET PO PRN ×2 (08:21→16:31)
[2022-08-24 16:19] VITALS: BP 109/60
[2022-08-24] MEDS: ZOLPIDEM TARTRATE 10 MG TABLET PO PRN (20:30)
[2022-08-25 07:07] LABS: COVID AG,FIA SOURCE NASAL SWAB
[2022-08-25] MEDS: DIVALPROEX SODIUM 500 MG DR TABLET PO SCH ×2 (08:50→20:51)
[2022-08-25] MEDS: HALOPERIDOL 5 MG TABLET PO SCH ×2 (08:50→16:55)
[2022-08-25] MEDS: RisperiDONE 2 MG TABLET PO SCH ×2 (08:50→20:51)
[2022-08-25 09:51] VITALS: BP 106/68
[2022-08-25 17:28] VITALS: BP 106/63
[2022-08-26 08:05] VITALS: BP 152/84
[2022-08-26] MEDS: DIVALPROEX SODIUM 500 MG DR TABLET PO SCH ×2 (08:29→21:02)
[2022-08-26] MEDS: HALOPERIDOL 5 MG TABLET PO SCH ×2 (08:29→16:36)
[2022-08-26] MEDS: RisperiDONE 2 MG TABLET PO SCH ×2 (08:29→21:02)
[2022-08-26] MEDS: LORazepam 2 MG TABLET PO PRN ×2 (10:13→21:02)
[2022-08-26 17:21] VITALS: BP 101/64
[2022-08-27 08:30] VITALS: BP 109/68
[2022-08-27] MEDS: HALOPERIDOL 5 MG TABLET PO SCH ×2 (09:11→16:54)
[2022-08-27] MEDS: DIVALPROEX SODIUM 500 MG DR TABLET PO SCH ×2 (09:11→20:02)
[2022-08-27] MEDS: RisperiDONE 2 MG TABLET PO SCH ×2 (09:11→20:02)
[2022-08-27 16:24] VITALS: BP 107/61
[2022-08-27] MEDS: ZOLPIDEM TARTRATE 10 MG TABLET PO PRN (21:18)
[2022-08-28] MEDS: RisperiDONE 2 MG TABLET PO SCH ×2 (08:16→20:32)
[2022-08-28] MEDS: DIVALPROEX SODIUM 500 MG DR TABLET PO SCH ×2 (08:17→20:32)
[2022-08-28] MEDS: HALOPERIDOL 5 MG TABLET PO SCH ×2 (08:17→16:02)
[2022-08-28 09:55] VITALS: BP 121/81
[2022-08-28 16:09] VITALS: BP 128/88
[2022-08-28 21:12] VITALS: BP 128/79
[2022-08-28] MEDS: ZOLPIDEM TARTRATE 10 MG TABLET PO PRN (21:16)
[2022-08-29] MEDS: DIVALPROEX SODIUM 500 MG DR TABLET PO SCH ×2 (07:56→20:18)
[2022-08-29] MEDS: HALOPERIDOL 5 MG TABLET PO SCH ×2 (07:56→16:43)
[2022-08-29] MEDS: LORazepam 2 MG TABLET PO PRN ×2 (07:56→16:43)
[2022-08-29] MEDS: RisperiDONE 2 MG TABLET PO SCH ×2 (07:57→20:18)
[2022-08-29 08:27] VITALS: BP 105/71
[2022-08-29 16:19] VITALS: BP 103/63
[2022-08-30 08:10] VITALS: BP 110/78
[2022-08-30] MEDS: HALOPERIDOL 5 MG TABLET PO SCH ×2 (08:36→16:18)
[2022-08-30] MEDS: DIVALPROEX SODIUM 500 MG DR TABLET PO SCH ×2 (08:36→20:54)
[2022-08-30] MEDS: LORazepam 2 MG TABLET PO PRN (08:36)
[2022-08-30] MEDS: RisperiDONE 2 MG TABLET PO SCH ×2 (08:36→20:54)
[2022-08-30 12:30] VITALS: BP 112/84
[2022-08-30 16:02] VITALS: BP 108/82
[2022-08-30] MEDS: ZOLPIDEM TARTRATE 10 MG TABLET PO PRN (21:16)
[2022-08-31 08:00] VITALS: BP 124/80
[2022-08-31] MEDS: RisperiDONE 2 MG TABLET PO SCH (08:24)
[2022-08-31] MEDS: DIVALPROEX SODIUM 500 MG DR TABLET PO SCH (08:24)
[2022-08-31] MEDS: LORazepam 2 MG TABLET PO PRN (08:25)
[2022-08-31] MEDS: HALOPERIDOL 5 MG TABLET PO SCH (08:25)
[2022-08-31] MEDS ORDERED: DIVA-112 PO (12:57)
[2022-08-31] MEDS ORDERED: RISP2TAB86 PO (12:57)
[2022-08-31] MEDS ORDERED: HALO5TAB23 PO (12:57)
== END 2022-08-31 15:35 | disposition home or self-care (01) | DRG 750 ==
LOC: EMS 02:11 → 3EC 06:42
PROVIDERS: ADMIT Psychiatry & Neurology Child & Adolescent Psychiatry; ATTEND Psychiatry & Neurology Child & Adolescent Psychiatry
PROC: 3E0234Z Introduction of Serum, Toxoid and Vaccine into Muscle, Percutaneous Approach (ICD-10-PCS; principal; 2022-08-19)
DX: F25.0 Schizoaffective disorder, bipolar type (principal); F12.10 Cannabis abuse, uncomplicated; Z87.891 Personal history of nicotine dependence; F15.10 Other stimulant abuse, uncomplicated; Z20.822 Contact with and (suspected) exposure to COVID-19; G47.00 Insomnia, unspecified; K59.00 Constipation, unspecified; Z59.00 Homelessness unspecified; Z23 Encounter for immunization
CPT/HCPCS: 80053; 80164; 81003; 85025; 99285; G0480